=== PATIENT | male | born 1965 | race Caucasian/White ===

== ENCOUNTER 2018-11-26 08:09 | Emergency (ER) | payer OTHER ==
[2018-11-26 08:22] VITALS: BP 119/79
--- NOTE | 2018-11-26 08:47 | UC ---
Lower Extremity/Ankle HPI - History of Current Complaint Chief Complaint: UCLowerExtremity Stated Complaint: RT TOE INJ Time Seen by Provider: 11/26/18 08:18 Hx Obtained From: Patient Onset/Duration: Sudden Onset, Still Present Severity Initially: Moderate Severity Currently: Moderate Pain Intensity: 4 Pain Scale Used: 0-10 Numeric Aggravating Factor(s): Standing, Ambulation Alleviating Factor(s): Rest, Elevation, Ice Able to Bear Weight: Yes - Allergies/Home Medications Allergies/Adverse Reactions: Allergies Allergy/AdvReac Type Severity Reaction Status Date / Time No Known Allergies Allergy Verified 11/26/18 08:22 Home Medications: Home Medications Ibuprofen TAB* [Advil TAB*] 400 mg PO Q4H PRN 11/26/18 [History Confirmed ] Tadalafil (Nf) [Cialis (NF)] 5 mg PO DAILY PRN MDD 1 11/26/18 [History Confirmed 11/26/18] PMH/Surg Hx/FS Hx/Imm Hx Previously Healthy: Yes - Surgical History Surgical History: Yes Surgery Procedure, Year, and Place: 2010, LEFT EAR, [place]. 1980, WISDOM TEETH. 1970, TONSILECTOMY - Family History Known Family History: Positive: Non-Contributory - Social History Alcohol Use: Occasionally Substance Use Type: None Smoking Status (MU): Former Smoker Review of Systems All Other Systems Reviewed And Are Negative: Yes Constitutional: Positive: Negative Musculoskeletal: Positive: Arthralgia, Edema, Myalgia Psychological: Positive: Negative Is Patient Immunocompromised?: No Physical Exam Triage Information Reviewed: Yes Appearance: Well-Appearing, No Pain Distress, Well-Nourished Vital Signs: Initial Vital Signs Temp 98.5 F 11/26/18 08:16 Pulse 78 11/26/18 08:16 Resp 18 11/26/18 08:16 BP 119/79 11/26/18 08:16 Pulse Ox 97 11/26/18 08:16 Vital Signs Reviewed: Yes Eyes: Positive: Conjunctiva Clear ENT: Positive: Hearing grossly normal Musculoskeletal: Positive: Strength Intact - Great toe, ROM Intact - Great toe, Edema @ - right Great toe, Other: - TTP over DIP great toe right. no TTP over joints.. Negative: Strength Limited @, ROM Limited @ Neurological Exam: Normal Neurological: Positive: Alert, Muscle Tone Normal Psychological Exam: Normal Skin: Positive: Other - edema with underlying ecchymosis over DIP great toe, no drainage noted. Lower Extremity Course/Dx - Course Course Of Treatment: radiograph- negative for fracture Contusion , great toe - Elevate, Ice as much as possible to decrease swelling - hard heeled shoes for comfort - Motrin/ tylenol as needed for pain - Antibiotics as directed due to increased redness, tenderness - Differential Dx/Diagnosis Differential Diagnosis/HQI/PQRI: Cellulitis, Contusion Provider Diagnosis: Contusion Discharge - Sign-Out/Discharge Documenting (check all that apply): Patient Departure All imaging exams completed and their final reports reviewed: Yes - Discharge Plan Condition: Good Disposition: HOME Prescriptions: DOXYcycline CAP(*) [DOXYcycline 100MG CAP(*)] 100 mg PO BID #20 cap Patient Education Materials: Foot Contusion (ED), Doxycycline (By mouth) Referrals: Lakeisha Scott MD [Primary Care Provider] - (follow up in 2-3 days if no improvement, go to ER with worsening ) Additional Instructions: Contusion , great toe - Elevate, Ice as much as possible to decrease swelling - hard heeled shoes for comfort - Motrin/ tylenol as needed for pain - Antibiotics as directed due to increased redness, tenderness - Billing Disposition and Condition Condition: GOOD Disposition: Home
== END 2018-11-26 09:15 | disposition home or self-care (01) ==
LOC: UCEAST 08:09
DX: S90.111A Contusion of right great toe without damage to nail, initial encounter (principal); X58.XXXA Exposure to other specified factors, initial encounter; Y92.9 Unspecified place or not applicable; Z87.891 Personal history of nicotine dependence
CPT/HCPCS: 99212; G0463